=== PATIENT | female | born 1995 | race Caucasian/White ===

== ENCOUNTER 2017-03-21 09:50 | Emergency (ER) | payer OTHER ==
[~2017-03-21] VITALS: Ht 157.5 cm; Wt 56.7 kg
[2017-03-21 09:50] VITALS: BP 125/95
== END 2017-03-21 11:25 | disposition home or self-care (01) ==
LOC: ER 09:55
DX: S33.5XXA Sprain of ligaments of lumbar spine, initial encounter (principal); M77.9 Enthesopathy, unspecified; V29.9XXA Motorcycle rider (driver) (passenger) injured in unspecified traffic accident, initial encounter; Y93.89 Activity, other specified; Y92.89 Other specified places as the place of occurrence of the external cause; Y99.9 Unspecified external cause status
CPT/HCPCS: 72100; 73130; 84703; 99284; A4606; Z7610

== ENCOUNTER 2019-02-08 13:51 | Emergency (ER) | payer OTHER ==
[~2019-02-08] VITALS: Ht 157.5 cm; Wt 62.1 kg
--- NOTE | 2019-02-08 13:58 | NUR ---
CAME IN FOR ABDOMINAL PAIN X9 DAYS, WITH NAUSEA AND DIARRHEA. TO ER BED 7, HOOKED TO MONITOR, CHANGED TO [facility], AWAITING MD COSTA.
--- NOTE | 2019-02-08 14:01 | NUR ---
JULIUS BRADLEY PAC AT BEDSIDE
--- NOTE | 2019-02-08 14:03 | NUR ---
ER-PROVIDER AT FOR EVAL.
--- NOTE | 2019-02-08 14:03 | NUR ---
UA COLLECTED AND SENT TO LAB.
--- NOTE | 2019-02-08 14:23 | NUR ---
US TECH AT BEDSIDE
[2019-02-08 14:32] LABS: APPEARANCE,URINE Clear (CLEAR); BILIRUBIN,URINE Negative (NEGATIVE); BLOOD, URINE Small Ery/uL (NEGATIVE); COLOR,URINE Yellow (YELLOW); KETONES,URINE Trace (NEGATIVE); LEUKOCYTE ESTERASE ,URINE Negative (NEGATIVE); NITRITE, URINE Negative (NEGATIVE); PH,URINE 5.5 (5.0-8.0); PROTEIN,URINE Negative (NEGATIVE); UGLUCOSE Negative (NEGATIVE); UROBILINOGEN,URINE 0.2 EU/dL (0.2)
[2019-02-08 14:40] LABS: BACTERIA,URINE Few /HPF (None Seen); SQUAMOUS EPITHELIAL CELL,UR Few /HPF (None Seen); WBC,URINE 0-2 /HPF (0-3)
[2019-02-08 14:42] LABS: BASOPHILS % (AUTO) 0.4 % (0.0-2.0); EOSINOPHILS % (AUTO) 0.3 % (0.0-6.0); HEMATOCRIT 43 % (33-45); HEMOGLOBIN 14.1 g/dL (11.5-14.8); LYMPHOCYTES # (AUTO) 2.2 /CMM (0.8-4.8); LYMPHOCYTES % (AUTO) 22.7 % (20.0-44.0); MEAN CORPUSCULAR HGB CONC 33 g/dl (31.0-36.0); MEAN CORPUSCULAR VOLUME 82 fL (82-100); MONOCYTES # (AUTO) 0.6 /CMM (0.1-1.30); MONOCYTES % (AUTO) 6.4 % (2.0-12.0); NEUTROPHILS # (AUTO) 6.9 /CMM (1.8-8.9); NEUTROPHILS % (AUTO) 70.2 % (43.0-81.0); PLATELET COUNT (AUTO) 252 /CMM (150-450); RED BLOOD CELL COUNT(AUTO) 5.21 MIL/uL (4.0-5.2); WHITE BLOOD COUNT (AUTO) 9.8 K/uL (4.3-11.0)
[2019-02-08 14:48] LABS: CALCIUM, SERUM 9.2 mg/dL (8.5-10.1); CREATININE 0.6 mg/dL (0.6-1.3); POTASSIUM 3.5 mmol/L (3.5-5.1)
[2019-02-08 14:56] LABS: ALBUMIN 4.1 g/dL (3.4-5.0); BILIRUBIN,DIRECT 0.2 mg/dL (0.0-0.2); BILIRUBIN,TOTAL 0.6 mg/dL (0.2-1.0); TOTAL PROTEIN, SERUM 7.3 g/dL (6.4-8.2)
--- NOTE | 2019-02-08 15:41 | NUR ---
Patient discharged to home in stable condition. Written and verbal after care instructions given. Patient verbalizes understanding of instruction.
[2019-02-08 15:43] VITALS: BP 128/71
== END 2019-02-08 15:43 | disposition home or self-care (01) ==
LOC: ER 13:56
DX: R10.2 Pelvic and perineal pain (principal)
CPT/HCPCS: 36415; 76856-TC; 80048-TC; 80076-TC; 81000-TC; 83690-TC; 84703-TC; 85025-TC

== ENCOUNTER 2019-02-14 16:19 | Emergency (ER) | payer OTHER ==
[~2019-02-14] VITALS: Ht 157.5 cm; Wt 61.7 kg
--- NOTE | 2019-02-14 16:31 | NUR ---
PT BIB SELF C/O "Abdominal pain/nausea/diarrhea xcouple weeks pain now going to back. Also have late period-delay 9days" PT IS AAOX4, NOT IN RESPIRATORY DISTRESS, V/S STABLE, KEPT RESTED AND COMFORTABLE, WILL CONTINUE TO MONITOR.
--- NOTE | 2019-02-14 16:45 | NUR ---
URINE SPECIMEN COLLECTED AND SENT TO LAB.
[2019-02-14 16:54] LABS: APPEARANCE,URINE Clear (CLEAR); BILIRUBIN,URINE Negative (NEGATIVE); BLOOD, URINE Small Ery/uL (NEGATIVE); COLOR,URINE Yellow (YELLOW); KETONES,URINE 15 (NEGATIVE); LEUKOCYTE ESTERASE ,URINE Negative (NEGATIVE); NITRITE, URINE Negative (NEGATIVE); PH,URINE 5.5 (5.0-8.0); PROTEIN,URINE Negative (NEGATIVE); UGLUCOSE Negative (NEGATIVE); UROBILINOGEN,URINE 0.2 EU/dL (0.2)
--- NOTE | 2019-02-14 16:54 | NUR ---
IV LINE ESTABLISHED, BLOOD DRAWNED AND SENT TO LAB.
[2019-02-14 16:55] LABS: BASOPHILS % (AUTO) 0.5 % (0.0-2.0); EOSINOPHILS % (AUTO) 0.7 % (0.0-6.0); HEMATOCRIT 45 % (33-45); HEMOGLOBIN 14.8 g/dL (11.5-14.8); LYMPHOCYTES # (AUTO) 2.2 /CMM (0.8-4.8); LYMPHOCYTES % (AUTO) 31.3 % (20.0-44.0); MEAN CORPUSCULAR HGB CONC 33 g/dl (31.0-36.0); MEAN CORPUSCULAR VOLUME 82 fL (82-100); MONOCYTES # (AUTO) 0.8 /CMM (0.1-1.30); MONOCYTES % (AUTO) 12.1 % (2.0-12.0); NEUTROPHILS # (AUTO) 3.8 /CMM (1.8-8.9); NEUTROPHILS % (AUTO) 55.4 % (43.0-81.0); PLATELET COUNT (AUTO) 239 /CMM (150-450); RED BLOOD CELL COUNT(AUTO) 5.47 MIL/uL (4.0-5.2); WHITE BLOOD COUNT (AUTO) 6.9 K/uL (4.3-11.0)
[2019-02-14] MEDS ORDERED: ONDANSETRON HCL/PF 4 MG/2 ML VIAL ONE (16:58)
[2019-02-14] MEDS ORDERED: IV NS 0.9% 1,000 ML BAG IV ONE (17:00)
[2019-02-14] MEDS ORDERED: ONDANSETRON HCL/PF 4 MG/2 ML VIAL IVP ONE (17:00)
[2019-02-14 17:03] LABS: CALCIUM, SERUM 9.5 mg/dL (8.5-10.1); CREATININE 0.7 mg/dL (0.6-1.3); POTASSIUM 3.7 mmol/L (3.5-5.1)
[2019-02-14 17:07] LABS: BACTERIA,URINE Few /HPF (None Seen); MUCUS,URINE Few /LPF (None Seen); WBC,URINE 0-2 /HPF (0-3)
[2019-02-14 17:09] LABS: ALBUMIN 4.2 g/dL (3.4-5.0); BILIRUBIN,DIRECT 0.2 mg/dL (0.0-0.2); BILIRUBIN,TOTAL 0.5 mg/dL (0.2-1.0); TOTAL PROTEIN, SERUM 7.7 g/dL (6.4-8.2)
--- NOTE | 2019-02-14 17:12 | NUR ---
FINANCIAL RISK MANAGER AT BEDSIDE FOR US.
--- NOTE | 2019-02-14 17:12 | NUR ---
PT IS BACK FROM THE CT SCAN.
--- NOTE | 2019-02-14 18:15 | NUR ---
IV removed. Catheter intact and site benign. Pressure and 4x4 applied to site. No bleeding noted. Patient discharged to home in stable condition. Written and verbal after care instructions given. Patient verbalizes understanding of instruction.
[2019-02-14 18:16] VITALS: BP 113/68
== END 2019-02-14 18:17 | disposition home or self-care (01) ==
LOC: ER 16:20
DX: K52.9 Noninfective gastroenteritis and colitis, unspecified (principal); R10.2 Pelvic and perineal pain; F10.10 Alcohol abuse, uncomplicated; Y90.9 Presence of alcohol in blood, level not specified
CPT/HCPCS: 36415; 74176; 76856; 80048; 80076; 81001; 83690; 84703; 85025; 96361; 96374; 99284; J2405; J7030; 81000-TC

== ENCOUNTER 2019-12-19 10:47 | Emergency (ER) | payer OTHER ==
[~2019-12-19] VITALS: Ht 157.5 cm; Wt 59.0 kg
--- NOTE | 2019-12-19 10:47 | NUR ---
PT CAME FROM HOME CC OF LEFT INDERX FINER LACERATION , NO SIGNS OF INFECTION AND BLEEDING NOTED , MD AT BEDSIDE FOR ASSESSMENT
[2019-12-19] MEDS ORDERED: TDAP [DIPH/PERTUSSIS/TET] 0.5 ML VIAL IM ONE ×2 (11:00)
--- NOTE | 2019-12-19 11:06 | NUR ---
TECH AT BEDSIDE FOR WOUND TREATMENT , WILL CONTINUE TO MONITOR
--- NOTE | 2019-12-19 11:15 | NUR ---
TDAP VACCINE GIVEN , NO REACTION NOTED , DISCHARGE INSTURCTION GIVEN , PT VERBALIZED UNDERSTANDING
[2019-12-19 11:20] VITALS: BP 102/55
== END 2019-12-19 11:21 | disposition home or self-care (01) ==
LOC: ER 10:53
DX: S61.211A Laceration without foreign body of left index finger without damage to nail, initial encounter (principal); W26.8XXA Contact with other sharp object(s), not elsewhere classified, initial encounter; Y93.89 Activity, other specified; Y92.89 Other specified places as the place of occurrence of the external cause; Y99.8 Other external cause status
CPT/HCPCS: 90715